=== PATIENT | female | born 1945 | race Caucasian/White ===

== ENCOUNTER 2016-10-10 09:27 | Day surgery (SDC) | payer MEDICARE, OTHER ==
[~2016-10-10 09:27] MED LIST: BENADRYL 25MG C25 MG PO; BRITE-LIFE ALLE10 MG PO; CALCIUM 600600 M2 PO; MELATONIN3 MG PO; METOPROLOL25 MG PO; OMEPRAZOLE D/R20 MG PO; PRAVASTATIN40 MG PO; SINGULAIR10 MG PO; VITAMIN D32000 IU PO
--- NOTE | 2016-10-10 10:32 | Operative Note ---
Colonoscopy ([place]) Procedure date: 10/10/16 Date of : 43 Procedure:Colonoscopy Flexible sigmoidoscopy Indications: Mrs. Billingsley is a 70-year-old female who is here for a diagnostic sigmoidoscopy. The patient has a long history of IBS and SIBO. She did see Dr. Sohan Ramirez and had sigmoid resection/low anterior resection and rectal prolapse repair. The patient still has significant incomplete defecation and requires sometimes manual assistance. She continues to have RIGHT lower quadrant abdominal pain and discomfort, bloating and gassiness. She had improved with combined fiber bowel regimen (MiraLAX plus Konsyl) and compliance with dietary measures. The patient did have a colonoscopy in January 2015 which revealed 2 diminutive polyps (tubular adenomas 2) which were removed. Performing Provider: Mikey Souza MD Referrring Provider: Chan Sanders M.D. Sedation: Fentanyl 100 mg IV/Versed 5 mg IV Procedure: Prior to the procedure, a history and physical exam was performed, and patient medications and allergies were reviewed. The risks and benefits of the procedure and the sedation options and risks were discussed with the patient. All questions were answered and informed consent was obtained. Patient identification and proposed procedure were verified by the physician and the nurse. The patient was placed in a left lateral decubitus position. Throughout the procedure, the patient's blood pressure, pulse, and oxygen saturations were monitored continuously. Findings: On digital rectal examination there was normal rectal tone there were no external hemorrhoids there was no rectocele. There was angulation at the puborectalis. The endoscope was then inserted through the anal canal to the rectum and advanced to 45 cm. Upon withdrawal, there was the anastomotic site that appeared to be well healed. This was at 15 cm from the anal verge. The remainder of the rectum itself was normal. Impressions: 1. Prior LAR anastomotic site identified but otherwise normal sigmoidoscopy to 45 cm Recommendations: I do feel that the patient has pelvic floor syndrome with significant incomplete defecation. I believe that she has had pelvic floor physical therapy and I still feel that she may benefit from sacral nerve stimulation (InterStim). We will discuss treatment options. Complications: None EBL (ml): 0 at 1032
[2016-10-10 13:16] VITALS: BP 116/65
== END 2016-10-10 11:45 | disposition home or self-care (01) ==
LOC: SDC 09:27
PROVIDERS: Internal Medicine Gastroenterology
PROC: 0DJD8ZZ Inspection of Lower Intestinal Tract, Via Natural or Artificial Opening Endoscopic (ICD-10-PCS; principal; 2016-10-10 10:30)
DX: K58.8 Other irritable bowel syndrome (principal); R15.0 Incomplete defecation; Z86.010 Personal history of colon polyps

== ENCOUNTER → 2017-06-23 | Outpatient (CLI) | payer MEDICARE, OTHER ==
--- NOTE | 2017-06-23 13:44 | RADIOLOGY REPORT PS360 ---
CT ABD PELVIS W/ CONTRAST CLINICAL INDICATION: RLQ PAIN ORDERING PHYSICIAN: ZENA MCCAULEY APRN PATIENT AGE: 71 years COMPARISON: None TECHNIQUE: Axial images obtained with sagittal and coronal reformats. PROCEDURE: Oral Contrast: Redicat IV Contrast: 75 mL's of Isovue-370. FINDINGS: Lung bases are clear. No focal liver lesion. There has been a prior cholecystectomy with mild prominence of both intra and extrahepatic biliary radicals. Spleen, adrenal glands, and pancreas are unremarkable. No hydronephrosis or hydroureter. No renal mass. There is a moderate amount retained colonic feces in the ascending and transverse and descending colon. Suture line is present at the rectosigmoid junction. No evidence of small bowel obstruction. There has been a prior appendectomy. No intestinal obstruction or free air. No focal inflammatory change. Status post hysterectomy. No acute bony anomalies. IMPRESSION: 1. No acute finding. 2. Constipation
== END ==
LOC: RAD 09:45
DX: R10.31 Right lower quadrant pain (principal)
CPT/HCPCS: Q9967